=== PATIENT | male | born 1975 | race Caucasian/White ===

== ENCOUNTER 2016-11-04 16:58 | Emergency (ER) | payer BC ==
[~2016-11-04] VITALS: Ht 182.9 cm; Wt 78.3 kg
[2016-11-04 17:04] VITALS: TEMP 37; Ht 182.9 cm; Wt 78.3 kg
[2016-11-04] MEDS ORDERED: SODIUM CHLORIDE 0.9% 1000ML 1,000 ML IV STA (17:34)
[2016-11-04] MEDS ORDERED: CLR10 PO (17:38)
[2016-11-04 18:05] LABS: BASO % 0.8 %; BASO ABS # 0.05 K/uL (0-0.2); COMPLETE YES; EOS % 1.2 %; HEMATOCRIT 41.4 % (42-52); IG% 0.2 %; LYMPH % 45.2 %; LYMPH ABS # 2.96 K/uL (1.2-3.4); MEAN CORPUSCULAR HEMOGLOBIN 32.5 pg (25-34); MEAN CORPUSCULAR HGB CONC 35.7 g/dl (32-36); MEAN PLATELET VOLUME 9.8 fL (7.4-10.4); MONO % 10.4 %; NEUT % 42.2 %; PLATELET COUNT 255 K/uL (130-400); RED BLOOD COUNT 4.55 M/uL (4.7-6.1); WHITE BLOOD COUNT 6.55 K/uL (4.8-10.8)
--- NOTE | 2016-11-04 18:20 | DIAGNOSTIC IMAGING REPORT ---
SINGLE VIEW CHEST CLINICAL HISTORY: Cough. FINDINGS: An AP, portable, upright chest radiograph is obtained. No prior studies are available for comparison at the time of dictation. The examination is mildly degraded by portable technique and patient rotation. The cardiomediastinal silhouette is unremarkable. The lungs and pleural spaces are clear. No pneumothorax is seen. The bony thorax is grossly intact. IMPRESSION: No active disease in the chest. Electronically signed by: Chandu Aguayo M.D. 11/04/2016 6:19 PM Dictated Date/Time: 11/04/2016 6:19 PM
[2016-11-04 18:21] LABS: BLOOD UREA NITROGEN 17 mg/dl (7-18); BUN/CREATININE RATIO 17.8 (10-20); CALCIUM 9.7 mg/dl (8.5-10.1); CARBON DIOXIDE 32 mmol/L (21-32); CHLORIDE 104 mmol/L (98-107); CREATININE 0.97 mg/dl (0.60-1.40); GLUCOSE 100 mg/dl (70-99); POTASSIUM 3.9 mmol/L (3.5-5.1); SODIUM 141 mmol/L (136-145)
[2016-11-04 19:02] VITALS: BP 139/82; PULSE 80; O2SAT 100
[2016-11-04] MEDS ORDERED: AMOX875T PO (19:15)
--- NOTE | 2016-11-04 21:57 | EMERGENCY ROOM VISIT NOTE ---
History Report prepared by Gerard: William Goldsmith Under the Supervision of: Dr. Tato Kinney D.O. First contact with patient: 17:26 Chief Complaint: SINUS CONGESTION/PRESSURE Stated Complaint: COUGH, DIZZINESS, SINUS PAIN Nursing Triage Summary: Pt states, "I've had a cough, dizziness, chest pain. I had bronchitis two weeks ago, was on abx and felt better then a couple days ago got this." Nasal congestion. +SOB. History of Present Illness The patient is a 41 year old male who presents to the Emergency Room with complaints of persistent sinus congestion beginning about 5 to 6 days ago. He notes he had bronchitis about 2 weeks ago and was given antibiotics by [facility]. He developed sinus pain, a dry cough, and a sore throat 5 to 6 days ago , and adds that yesterday and this morning he was lightheaded. He reports having difficulty focusing on things far away, and adds that breathing worsens his symptoms. The patient has been eating and drinking fine. He has 2 children at home that both have a cough. The patient denies having any fever, ear pain, back pain, urinary symptoms, or swelling of his calves. He also denies any history of asthma, cancer, long trips, recent surgeries, hemoptysis, and history of clots. Denies any diabetes, hypertension, hyperlipidemia, CAD or smoking. Source of History: patient Onset: 5 to 6 days ago Position: head Quality: other (sinus congestion) Timing: other (persistent) Modifying Factors (Relieving): breathing Associated Symptoms: + cough, + sorethroat, No back pain, No fevers, No urinary symptoms Note: The patient denies having swelling of his calves or ear pain. Review of Systems See HPI for pertinent positives & negatives. A total of 10 systems reviewed and were otherwise negative. Past Medical & Surgical Medical Problems: (1) History of bronchitis Family History No pertinent family history stated. Social History Smoking Status: Never Smoker Housing Status: lives with family Occupation Status: employed Current/Historical Medications Scheduled Amoxicillin & Pot Clavulanate (Augmentin 875-125 mg), 875 MG PO BID Scheduled PRN Loratadine (Claritin), 10 MG PO DAILY PRN for PRN Allergies Coded Allergies: No Known Allergies (Unverified , 11/04/16) Physical Exam Vital Signs Date Time Temp Pulse Resp B/P Pulse Ox O2 Delivery O2 Flow Rate FiO2 3/28/17 19:02 80 16 139/82 100 Room Air 11/04/16 17:31 89 18 139/112 97 Room Air 11/04/16 17:04 37.0 86 18 155/89 96 Room Air 11/04/16 17:02 95 Room Air Physical Exam GENERAL: Sitting up in bed, alert, well appearing, well nourished, no distress, non-toxic HEAD: Mild tenderness over frontal and maxillary sinuses. EYE EXAM: normal conjunctiva, PERRL and EOM's intact OROPHARYNX: no exudate, no erythema, lips, buccal mucosa, and tongue normal and mucous membranes are moist NECK: supple, no nuchal rigidity, no adenopathy, non-tender LUNGS: Clear to auscultation. Normal chest wall mechanics HEART: no murmurs, S1 normal and S2 normal ABDOMEN: abdomen soft, non-tender, normo-active bowel sounds, no masses, no rebound or guarding. BACK: Back is symmetrical on inspection and there is no deformity, no midline tenderness, no CVA tenderness. SKIN: no rashes and no bruising UPPER EXTREMITIES: upper extremities are grossly normal. LOWER EXTREMITIES: No pitting edema. NEURO EXAM: Normal sensorium, cranial nerves II-XII grossly intact, normal speech, no gross weakness of arms, no gross weakness of legs. No drift. Finger to nose intact. Gross sensation intact. Medical Decision & Procedures ER Provider Diagnostic Interpretation: Radiology results have been interpreted by the radiologist and reviewed by me. SINGLE VIEW CHEST FINDINGS: An AP, portable, upright chest radiograph is obtained. No prior studies are available for comparison at the time of dictation. The examination is mildly degraded by portable technique and patient rotation. The cardiomediastinal silhouette is unremarkable. The lungs and pleural spaces are clear. No pneumothorax is seen. The bony thorax is grossly intact. IMPRESSION: No active disease in the chest. Electronically signed by: Chandu Aguayo M.D. 11/04/2016 6:19 PM Dictated Date/Time: 11/04/2016 6:19 PM Laboratory Results 11/04/16 17:50 Red Blood Count 4.55, Mean Corpuscular Volume 91.0, Mean Corpuscular Hemoglobin 32.5, Mean Corpuscular Hemoglobin Concent 35.7, Mean Platelet Volume 9.8, Neutrophils (%) (Auto) 42.2, Lymphocytes (%) (Auto) 45.2, Monocytes (%) (Auto) 10.4, Eosinophils (%) (Auto) 1.2, Basophils (%) (Auto) 0.8, Neutrophils # (Auto ) 2.77, Lymphocytes # (Auto) 2.96, Monocytes # (Auto) 0.68, Eosinophils # (Auto ) 0.08, Basophils # (Auto) 0.05 11/04/16 17:50 Test 11/04/16 17:50 White Blood Count 6.55 K/uL (4.8-10.8) Red Blood Count 4.55 M/uL (4.7-6.1) Hemoglobin 14.8 g/dL (14.0-18.0) Hematocrit 41.4 % (42-52) Mean Corpuscular Volume 91.0 fL (80-100) Mean Corpuscular Hemoglobin 32.5 pg (25-34) Mean Corpuscular Hemoglobin Concent 35.7 g/dl (32-36) Platelet Count 255 K/uL (130-400) Mean Platelet Volume 9.8 fL (7.4-10.4) Neutrophils (%) (Auto) 42.2 % Lymphocytes (%) (Auto) 45.2 % Monocytes (%) (Auto) 10.4 % Eosinophils (%) (Auto) 1.2 % Basophils (%) (Auto) 0.8 % Neutrophils # (Auto) 2.77 K/uL (1.4-6.5) Lymphocytes # (Auto) 2.96 K/uL (1.2-3.4) Monocytes # (Auto) 0.68 K/uL (0.11-0.59) Eosinophils # (Auto) 0.08 K/uL (0-0.5) Basophils # (Auto) 0.05 K/uL (0-0.2) RDW Standard Deviation 44.1 fL (36.4-46.3) RDW Coefficient of Variation 13.3 % (11.5-14.5) Immature Granulocyte % (Auto) 0.2 % Immature Granulocyte # (Auto) 0.01 K/uL (0.00-0.02) D-Dimer < 190 ug/L FEU (0-500) Anion Gap 5.0 mmol/L (3-11) Est Creatinine Clear Calc Drug Dose 111.1 ml/min Estimated GFR () 112.7 Estimated GFR (Non- 97.3 BUN/Creatinine Ratio 17.8 (10-20) Calcium Level 9.7 mg/dl (8.5-10.1) Troponin I < 0.015 ng/ml (0-0.045) Influenza Type A Antigen Neg for Influ A (NEG) Influenza Type B Antigen Neg for Influ B (NEG) Laboratory results per my review. Medications Administered Medications (Trade) Dose Ordered Sig/Hannah Route Start Time Stop Time Status Last Admin Dose Admin Sodium Chloride (Nss 1000ml) 1,000 ml @ 999 mls/hr Q1H1M STAT IV 11/04/16 17:34 11/04/16 18:34 DC 11/04/16 17:34 999 MLS/HR ECG Indication: other (sinus congestion) Rate (beats per minute): 70 Rhythm: sinus rhythm Findings: no ectopy, other (normal axis) ED Course ED COURSE: Vital signs were reviewed and showed normal. The patients medical record was reviewed The above diagnostic studies were performed and reviewed. ED treatments and interventions as stated above. 1728: The patient was evaluated in room C12B. A complete history and physical examination was performed. 1734: Ordered NSS 1,000 ml @ 999 mls/hr IV. 3: I reassessed the patient and he is feeling better. 1914: Upon reevaluation, the patient is doing well.I discussed my findings with the patient and he understands and agrees with the treatment plan. Based on the patients age, coexisting illnesses, exam and lab findings the decision to treat as an outpatient was made. The patient remained stable while under my care. The patient appeared well at the time of discharge. Medical Decision Differential diagnoses includes but is not limited to pneumonia, bronchitis, COPD/Asthma exacerbation, pneumothorax, pulmonary embolism, congestive heart failure, acute coronary syndrome Patient is a 41-year-old male who presents the ER for cough, chest pain and sinus pain which is been present for the past 5 days. Labs show no significant leukocytosis or anemia. BMP along with troponin was negative . Patient with no cardiac risk factors. D-dimer was negative. Strep was negative. Influenza A and B were negative. With his children sick at home and his presentation I do feel this is consistent with a viral URI. He was updated in regards to his findings. I did give him a prescription for Augmentin to treat a sinusitis. I discharged him the follow-up with his primary care doctor as an outpatient. Discussed with Pt concerning signs and symptoms to watch out for. Pt was instructed to follow up with their PCP and discussed with the patient their option to return to the ED at anytime for persistent or worsening symptoms. The appropriate anticipatory guidance and out-patient management, including indications for return to the emergency department, were explained at length to the patient and understood. Impression Primary Impression: Sinusitis Additional Impression: Viral URI Scribe Attestation The scribe's documentation has been prepared under my direction and personally reviewed by me in its entirety. I confirm that the note above accurately reflects all work, treatment, procedures, and medical decision making performed by me. Departure Information Dispostion Home / Self-Care Prescriptions Amoxicillin & Pot Clavulanate (Augmentin 875-125 mg) 1 Tab Tab 875 MG PO BID for 7 Days, TAB Prov: Tato Kinney, DO 11/04/16 Referrals No Doctor, Assigned (PCP) Patient Instructions Bronchitis Acute, ED URI Viral, [facility] Additional Instructions Please follow up with your primary care doctor with in the next 24 hours. Any worsening of your symptoms, please return to the ED immediately. This includes persistent fevers greater than 100.4, shortness of breath, chest pain, passing out, or any other concerning signs or symptoms from your standpoint. Please take antibiotics as prescribed. Problem Qualifiers Primary Impression: Sinusitis Sinusitis location: frontal Chronicity: acute Recurrence: not specified as recurrent Qualified Codes: J01.10 - Acute frontal sinusitis, unspecified
== END 2016-11-04 19:29 | disposition home or self-care (01) ==
LOC: C.EDB 17:01 → C.EDC 19:29
DX: J01.10 Acute frontal sinusitis, unspecified (principal); R09.81 Nasal congestion